=== PATIENT | female | born 1930 | race Caucasian/White ===

== ENCOUNTER 2017-10-25 06:45 | Emergency (ER) | payer MEDICARE, OTHER ==
[2017-10-25] MEDS ORDERED: Aspirin 81 MG Tab.Chew PO ONE (07:14)
[2017-10-25] MEDS ORDERED: Iopamidol 755 Mg/ML 75 ML Bottle IV ONE (08:26)
--- NOTE | 2017-10-25 10:14 | EDM.PDOC ---
ED HPI GENERAL MEDICAL PROBLEM - General Chief Complaint: Chest Pain Stated Complaint: CHEST PAIN Time Seen by Provider: 10/25/17 07:00 Source of Information: Reports: Patient, Family History Limitations: Reports: No Limitations - History of Present Illness INITIAL COMMENTS - FREE TEXT/NARRATIVE: Patient is an 87 year old woman who has right sided chest pain by her right collar bone and shoulder area. She lifted a heavy pail of ice 2 days ago and she had some pain in the shoulder at that time in the same area. She has no exertional component to the pain and it is sharp in nature and lasts only a few minutes. She has no dyspnea, diaphoresis or nausea in conjunction with the pain. This has never happened before to her. 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 R chest/shoulder Pain Score (Numeric/FACES): 6 - Related Data Allergies Allergy/AdvReac Type Severity Reaction Status Date / Time ibuprofen [From Advil] Allergy Tachycardia Verified 10/25/17 07:17 indomethacin Allergy Tachycardia Verified 10/25/17 07:17 oxybutynin Allergy Nausea Verified 10/25/17 07:17 Home Meds: Home Meds Aspirin 81 mg PO Q48H 10/25/17 [History] Bimatoprost [Lumigan 0.01% Ophth Soln] 1 drop EYEBOTH BEDTIME 10/25/17 [History] Hydrochlorothiazide [Hydrochlorothiazide] 25 mg DAILY 10/25/17 [History] Levothyroxine 75 mcg DAILY 10/25/17 [History] Lovastatin [Lovastatin] 10 mg BEDTIME 10/25/17 [History] Meclizine [Antivert] 12.5 mg PO DAILY 10/25/17 [History] Metoprolol Tartrate [Metoprolol Tartrate] 25 mg BID 10/25/17 [History] Verapamil HCl [Verapamil ER] 120 mg DAILY 10/25/17 [History] Past Medical History HEENT History: Reports: Cataract, Glaucoma Cardiovascular History: Reports: Heart Failure, Heart Murmur, High Cholesterol, Hypertension 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 History: Neurological History: Reports: Vertigo - Past Surgical History HEENT Surgical History: Reports: Cataract Surgery Musculoskeletal Surgical History: Reports: Other (See Below) Other Musculoskeletal Surgeries/Procedures:: vericose vein surgery Social & Family History - Family History Family Medical History: Noncontributory - Tobacco Use Smoking Status *Q: Former Smoker Years of Tobacco use: 1 Used Tobacco, but Quit: Yes Month Tobacco Last Used: nov - Caffeine Use Caffeine Use: Reports: Coffee - Recreational Drug Use Recreational Drug Use: No ED ROS GENERAL - Review of Systems Review Of Systems: See Below Constitutional: Reports: No Symptoms HEENT: Reports: No Symptoms Respiratory: Reports: No Symptoms Cardiovascular: Reports: Chest Pain Endocrine: Reports: No Symptoms GI/Abdominal: Reports: No Symptoms : Reports: No Symptoms Musculoskeletal: Reports: Shoulder Pain Skin: Reports: No Symptoms Neurological: Reports: No Symptoms Psychiatric: Reports: No Symptoms Hematologic/Lymphatic: Reports: No Symptoms ED EXAM, GENERAL - Physical Exam Exam: See Below Exam Limited By: No Limitations General Appearance: Alert, WD/WN, No Apparent Distress Eye Exam: Bilateral Eye: EOMI, Normal Fundi, Normal Inspection, PERRL Ears: Normal External Exam Ear Exam: Bilateral Ear: Auricle Normal, Canal Normal, TM normal Nose: Normal Inspection, Normal Mucosa, No Blood Throat/Mouth: Normal Inspection, Normal Lips, Normal Teeth, Normal Gums, Normal Oropharynx, Normal Voice, No Airway Compromise Head: Atraumatic, Normocephalic Neck: Normal Inspection, Supple, Non-Tender, Full Range of Motion Respiratory/Chest: No Respiratory Distress, Other (Pain on palpation of upper chest wall by the right collar bone.) Cardiovascular: Normal Peripheral Pulses, Regular Rate, Rhythm, No Edema, No Gallop, No JVD, No Murmur, No Rub GI/Abdominal: Normal Bowel Sounds, Soft, Non-Tender, No Organomegaly, No Distention, No Abnormal Bruit, No Mass Back Exam: Normal Inspection, Full Range of Motion, NT Extremities: Normal Inspection, Normal Range of Motion, Non-Tender, Normal Capillary Refill, No Pedal Edema Neurological: Alert, Oriented, CN II-XII Intact, Normal Cognition, Normal Gait, Normal Reflexes, No Motor/Sensory Deficits Psychiatric: Normal Affect, Normal Mood Skin Exam: Warm, Dry, Intact, Normal Color, No Rash Lymphatic: No Adenopathy EKG INTERPRETATION EKG Date: 10/25/17 Rhythm: NSR [place]: Normal P-Wave: Present QRS: Normal ST-T: Normal QT: Normal Comparison: NA - No Prior EKG Course - Vital Signs Text/Narrative:: Uneventful ED course. She was pain free throughout the ED course and with the EKG, CXR, labs all normal other than an elevated D-dimer she had a CT chest angiogram that was normal that ruled out a PE. She was therefore sent home and will take Ibuprofen 400 mg po q 6 hours. She will follow up with PCP next week if pain changes or persists. She can also ice the shoulder over the weekend. Last Recorded V/S: Last Vital Signs Temp 36.3 C 10/25/17 06:45 Pulse 76 10/25/17 06:45 Resp 20 10/25/17 06:45 BP 192/67 H 10/25/17 06:45 Pulse Ox 96 10/25/17 06:45 - Orders/Labs/Meds Orders: Active Orders 24 hr Category Date Time Status EKG Documentation Completion [RC] ASDIRECTED Care 10/25/17 07:14 Active Ang Chest [CT] Stat Exams 10/25/17 08:06 Taken Chest 2V [CR] Stat Exams 10/25/17 07:13 Taken EKG 12 Lead [EK] Routine Ther 10/25/17 07:14 Ordered Labs: Laboratory Tests 10/25/17 10/25/17 10/25/17 Range/Units 06:55 06:55 06:55 WBC 4.6 (4.5-12.0) X10-3/uL RBC 4.47 (3.23-5.20) x10(6)uL Hgb 13.3 (11.5-15.5) g/dL Hct 39.6 (30.0-51.3) % MCV 88.5 (80-96) fL MCH 29.6 (27.7-33.6) pg MCHC 33.5 (32.2-35.4) g/dL RDW 12.6 (11.5-15.5) % Plt Count 146 (125-369) X10(3)uL MPV 9.0 (7.4-10.4) fL Neut % (Auto) 53.0 (46-82) % Lymph % (Auto) 29.2 (13-37) % [place] % (Auto) 10.9 (4-12) % Eos % (Auto) 6 H (1.0-5.0) % Baso % (Auto) 1 (0-2) % Neut # (Auto) 2.4 (1.6-8.3) # Lymph # (Auto) 1.3 (0.6-5.0) # [place] # (Auto) 0.5 (0.0-1.3) # Eos # (Auto) 0.3 (0.0-0.8) # Baso # (Auto) 0.1 (0.0-0.2) # D-Dimer, Quantitative (100-400) ng/mL Sodium 141 (135-145) mmol/L Potassium 3.4 L (3.5-5.3) mmol/L Chloride 104 (100-110) mmol/L Carbon Dioxide 29 (21-32) mmol/L BUN 20 H (7-18) mg/dL Creatinine 0.9 (0.55-1.02) mg/dL Est Cr Clr Drug Dosing TNP Estimated GFR (MDRD) 60 (>60) BUN/Creatinine Ratio 22.2 H (9-20) Glucose 92 (80-116) mg/dL Calcium 9.3 (8.6-10.2) mg/dL Total Bilirubin 0.5 (0.1-1.3) mg/dL AST 25 (5-25) IU/L ALT 25 (12-36) U/L Alkaline Phosphatase 55 L (56-112) IU/L Troponin I < 0.017 L (<0.017-0.056) ng/mL Total Protein 6.6 (6.0-8.0) g/dL Albumin 3.6 (3.2-4.6) g/dL Globulin 3.0 g/dL Albumin/Globulin Ratio 1.2 10/25/17 Range/Units 06:55 WBC (4.5-12.0) X10-3/uL RBC (3.23-5.20) x10(6)uL Hgb (11.5-15.5) g/dL Hct (30.0-51.3) % MCV (80-96) fL MCH (27.7-33.6) pg MCHC (32.2-35.4) g/dL RDW (11.5-15.5) % Plt Count (125-369) X10(3)uL MPV (7.4-10.4) fL Neut % (Auto) (46-82) % Lymph % (Auto) (13-37) % [place] % (Auto) (4-12) % Eos % (Auto) (1.0-5.0) % Baso % (Auto) (0-2) % Neut # (Auto) (1.6-8.3) # Lymph # (Auto) (0.6-5.0) # [place] # (Auto) (0.0-1.3) # Eos # (Auto) (0.0-0.8) # Baso # (Auto) (0.0-0.2) # D-Dimer, Quantitative 504 H (100-400) ng/mL Sodium (135-145) mmol/L Potassium (3.5-5.3) mmol/L Chloride (100-110) mmol/L Carbon Dioxide (21-32) mmol/L BUN (7-18) mg/dL Creatinine (0.55-1.02) mg/dL Est Cr Clr Drug Dosing Estimated GFR (MDRD) (>60) BUN/Creatinine Ratio (9-20) Glucose (80-116) mg/dL Calcium (8.6-10.2) mg/dL Total Bilirubin (0.1-1.3) mg/dL AST (5-25) IU/L ALT (12-36) U/L Alkaline Phosphatase (56-112) IU/L Troponin I (<0.017-0.056) ng/mL Total Protein (6.0-8.0) g/dL Albumin (3.2-4.6) g/dL Globulin g/dL Albumin/Globulin Ratio Meds: Medications Discontinued Medications Generic Name Dose Route Start Last Admin Trade Name Freq PRN Reason Stop Dose Admin Aspirin 324 mg 10/25/17 07:14 10/25/17 07:10 Aspirin PO 10/25/17 07:15 324 mg ONETIME ONE Administration Iopamidol 75 ml 12/15/17 08:26 10/25/17 09:15 Isovue-370 (76%) IV 10/25/17 08:27 75 ml ONETIME ONE Administration Departure - Departure Time of Disposition: 10:19 Disposition: Home, Self-Care 01 Condition: Good Clinical Impression: Sprain of right acromioclavicular joint Referrals: James Todd MD [Primary Care Provider] - - My Orders Last 24 Hours: My Active Orders 10/25/17 07:13 Chest 2V [CR] Stat 10/25/17 07:14 EKG Documentation Completion [RC] ASDIRECTED EKG 12 Lead [EK] Routine 10/25/17 08:06 Ang Chest [CT] Stat - Assessment/Plan Last 24 Hours: My Active Orders 10/25/17 07:13 Chest 2V [CR] Stat 10/25/17 07:14 EKG Documentation Completion [RC] ASDIRECTED EKG 12 Lead [EK] Routine 10/25/17 08:06 Ang Chest [CT] Stat
--- NOTE | 2017-10-28 13:30 | CR ---
INDICATION: Chest pain. CHEST: PA and lateral views of the chest 10/25/2017 were compared with 2011. The heart remains normal in size and shape. The aorta is tortuous with calcification in the arch. Overlying EKG leads are noted. Mild degenerative changes are noted in the mid thoracic spine. Also noted is a mild dextroconcave scoliosis of the lower thoracic spine. Slightly prominent AP diameter interdigitation of diaphragm leaves with minimal flattening of diaphragm leaves suggests the possibility of COPD as previously. IMPRESSION: No definite acute process - multiple findings as noted above. MTDD
== END 2017-10-25 10:40 | disposition home or self-care (01) ==
LOC: FB.ED 06:45
DX: S43.51XA Sprain of right acromioclavicular joint, initial encounter (principal); Z87.891 Personal history of nicotine dependence; Z79.82 Long term (current) use of aspirin; Z79.899 Other long term (current) drug therapy; Z88.8 Allergy status to other drugs, medicaments and biological substances; Z88.6 Allergy status to analgesic agent; X50.9XXA Other and unspecified overexertion or strenuous movements or postures, initial encounter
CPT/HCPCS: 36415; 71020; 71275; 80053; 84484; 85025; 85379; 93005; 99285; A9270; Q9967; 99284

== ENCOUNTER 2018-04-06 20:29 | Emergency (ER) | payer MEDICARE, OTHER ==
--- NOTE | 2018-04-06 20:52 | EDM.PDOC ---
ED HPI GENERAL MEDICAL PROBLEM - General Stated Complaint: BRUISED HAND Time Seen by Provider: 04/06/18 20:29 Source of Information: Reports: Patient, Family History Limitations: Reports: No Limitations - History of Present Illness INITIAL COMMENTS - FREE TEXT/NARRATIVE: 87 y.o. w f with a H/O HTN came with her son to the ed after she was attempting to separate 2 fighting dogs. One of the dogs was hers. Pt she got he dog away, she noticed a hematoma at her left hand, dorsal aspect. No open wound, no dog bit wound was seen, No F/C no N/V/D or dizziness or any other acute medical issues. BP 158/48 RR 18 Temp 36.6 Pulse 87 O2 sat 98% on RA Onset Date: 04/06/18 Onset Time: 06:30 Duration: Hour(s): Location: Reports: Upper Extremity, Left Quality: Reports: Dull Severity: Mild Improves with: Reports: Rest Worsens with: Reports: Movement Context: Reports: Other (pt tried to seperate 2 fighting dogs) Associated Symptoms: Reports: No Other Symptoms - Related Data Allergies Allergy/AdvReac Type Severity Reaction Status Date / Time ibuprofen [From Advil] Allergy Tachycardia Verified 04/06/18 20:51 indomethacin Allergy Tachycardia Verified 04/06/18 20:51 oxybutynin Allergy Nausea Verified 04/06/18 20:51 Home Meds: Home Meds Aspirin 81 mg PO Q48H 10/25/17 [History] Bimatoprost [Lumigan 0.01% Ophth Soln] 1 drop EYEBOTH BEDTIME 10/25/17 [History] Hydrochlorothiazide 25 mg DAILY 10/25/17 [History] Levothyroxine 75 mcg DAILY 10/25/17 [History] Lovastatin 10 mg BEDTIME 10/25/17 [History] Meclizine [Antivert] 12.5 mg PO DAILY 10/25/17 [History] Metoprolol Tartrate 25 mg PO BID 10/25/17 [History] Verapamil HCl [Verapamil ER] 120 mg PO DAILY 10/25/17 [History] Diclofenac Sodium [Voltaren] 75 mg PO BIDMEALS 04/06/18 [History] Past Medical History HEENT History: Reports: Cataract, Glaucoma Cardiovascular History: Reports: Heart Failure, Heart Murmur, High Cholesterol, 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: Neurological History: Reports: Vertigo - Past Surgical History HEENT Surgical History: Reports: Cataract Surgery Musculoskeletal Surgical History: Reports: Other (See Below) Other Musculoskeletal Surgeries/Procedures:: vericose vein surgery Social & Family History - Family History Family Medical History: Noncontributory - Caffeine Use Caffeine Use: Reports: Coffee ED ROS GENERAL - Review of Systems Review Of Systems: See Below Constitutional: Reports: No Symptoms HEENT: Reports: No Symptoms Respiratory: Reports: No Symptoms Cardiovascular: Reports: No Symptoms Endocrine: Reports: No Symptoms GI/Abdominal: Reports: No Symptoms : Reports: No Symptoms Musculoskeletal: Reports: No Symptoms Skin: Reports: Other (hematoma left hand dorsal aspect) Neurological: Reports: No Symptoms Psychiatric: Reports: No Symptoms Hematologic/Lymphatic: Reports: No Symptoms Immunologic: Reports: No Symptoms ED EXAM, ANIMAL BITE - Physical Exam Exam: See Below Exam Limited By: No Limitations General Appearance: Alert, WD/WN, Mild Distress Eye Exam: Bilateral Eye: Normal Inspection Ears: Normal External Exam, Normal Canal, Hearing Grossly Normal Nose: Normal Inspection, Normal Mucosa, No Blood Throat/Mouth: Normal Inspection, Normal Lips, Normal Teeth, Normal Gums, Normal Oropharynx, Normal Voice, No Airway Compromise Head: Atraumatic, Normocephalic Neck: Normal Inspection, Supple, Non-Tender, Full Range of Motion Respiratory/Chest: No Respiratory Distress, Lungs Clear, Normal Breath Sounds, No Accessory Muscle Use, Chest Non-Tender Cardiovascular: Normal Peripheral Pulses, Regular Rate, Rhythm, No Edema, No Gallop, No Murmur, No Rub Peripheral Pulses: 1+: Radial (L) GI/Abdominal: Normal Bowel Sounds, Soft, Non-Tender, No Organomegaly, No Distention, No Abnormal Bruit, No Mass, Pelvis Stable (Female) Exam: Deferred Rectal (Female) Exam: Deferred Back Exam: Normal Inspection, Full Range of Motion Extremities: Normal Range of Motion, Non-Tender, No Pedal Edema, Normal Capillary Refill, Other (SQ hematoma left hand, dorsal aspect) Neurological: Alert, Oriented, CN II-XII Intact, Normal Cognition, Normal Gait Psychiatric: Normal Affect, Normal Mood Lymphadenopathy: Bilateral: No Adenopathy Course - Vital Signs Text/Narrative:: 87 y.o. w f with a H/O HTN came with her son to the ed after she was attempting to separate 2 fighting dogs. One of the dogs was hers. Pt she got he dog away, she noticed a hematoma at her left hand, dorsal aspect. No open wound, no dog bit wound was seen, No F/C no N/V/D or dizziness or any other acute medical issues. BP 158/48 RR 18 Temp 36.6 Pulse 87 O2 sat 98% on RA. Pt takes ASA daily PE: 87 y.o.w.f came to the ed with a hematoma left hand dorsal aspect, no open wound. H/O varicosis Impression: Hematoma left hand, dorsal aspect, no open wound, H/O HTN, H/O varicosis of left leg Tx: Ice to affected areas Reexam: Improved Plan: D/C with instructions Last Recorded V/S: Last Vital Signs Temp 36.6 C 04/06/18 20:30 Pulse 63 04/06/18 20:30 Resp 16 04/06/18 20:30 BP 159/48 H 04/06/18 20:30 Pulse Ox 97 04/06/18 20:30 Departure - Departure Time of Disposition: 20:52 Disposition: Home, Self-Care 01 Condition: Good Clinical Impression: Traumatic hematoma of left hand Qualifiers: Encounter type: initial encounter Qualified Code(s): S60.222A - Contusion of left hand, initial encounter - Discharge Information Instructions: Hematoma Referrals: James Todd MD [Primary Care Provider] - Forms: ED Department Discharge Additional Instructions: Please apply pressure/ice to the left hand, elevate left upper extremity. please report dog bite issue to police regarding rabies immunizations. Please f/ u with your PMD, come back if your symptoms get worse acutely
== END 2018-04-06 21:10 | disposition home or self-care (01) ==
LOC: FB.ED 20:29
DX: S60.222A Contusion of left hand, initial encounter (principal); I10 Essential (primary) hypertension; E78.00 Pure hypercholesterolemia, unspecified; I50.9 Heart failure, unspecified; Z88.6 Allergy status to analgesic agent; Z88.8 Allergy status to other drugs, medicaments and biological substances; Z79.82 Long term (current) use of aspirin; Z79.899 Other long term (current) drug therapy; W54.8XXA Other contact with dog, initial encounter
CPT/HCPCS: 99283

== ENCOUNTER 2022-03-06 16:50 | Emergency (ER) | payer MEDICARE, OTHER ==
[2022-03-06] MEDS ORDERED: Sulfamethoxazole/Trimethoprim 800-160 MG Tab PO ONE (16:51)
[2022-03-06] MEDS ORDERED: Potassium Chloride 20 MEQ Tab.ER PO ONE (18:47)
[2022-03-06] MEDS ORDERED: Lisinopril 2.5 MG Tab PO ONE (18:58)
[2022-03-06] MEDS ORDERED: Iopamidol 755 Mg/ML 75 ML Bottle IV ONE (19:07)
[2022-03-06] MEDS ORDERED: Lisinopril 5 MG Tab ONE (19:10)
[2022-03-06] MEDS ORDERED: hydrALAZINE 20 MG/ML SDV IVPUSH ONE (20:08)
== END 2022-03-06 21:05 | disposition home or self-care (01) ==
LOC: FB.ED 16:50
DX: N39.0 Urinary tract infection, site not specified (principal); R79.82 Elevated C-reactive protein (CRP); R53.83 Other fatigue; R79.0 Abnormal level of blood mineral; E87.6 Hypokalemia; R94.6 Abnormal results of thyroid function studies; E78.00 Pure hypercholesterolemia, unspecified; I11.0 Hypertensive heart disease with heart failure; I50.9 Heart failure, unspecified; Z88.8 Allergy status to other drugs, medicaments and biological substances; Z79.82 Long term (current) use of aspirin; Z79.899 Other long term (current) drug therapy; Z20.822 Contact with and (suspected) exposure to COVID-19
CPT/HCPCS: 36415; 71046; 74019; 74177; 80053; 81001; 83880; 84443; 84484; 85025; 86140; 87086; 87088; 87186; 93005; 93010; 96374; 99283; 99284-25; A9270-GY; J0360; Q9967; U0002